=== PATIENT | male | born 1960 | race Hispanic/Latino ===

== ENCOUNTER 2021-06-26 10:22 | Outpatient (CLI) | payer OTHER ==
--- NOTE | 2021-06-26 13:10 | XRay Report ---
LEFT FOOT 2 VIEWS INDICATION / CLINICAL INFORMATION: LT FOOT ARTHRITIS COMPARISON: None available. FINDINGS: BONES / JOINT(S): Chronic flatfoot deformity. Underlying bony sclerosis and degenerative change. Ther e appears to be chronic collapse at the talus and anterior calcaneus which is not well evaluated. Deg enerative changes greatest at the first metatarsophalangeal joint where changes are moderate. Underly ing osteopenia is noted. Findings could be better evaluated with CT or MRI as clinically indicated. SOFT TISSUES: Diffuse soft tissue swelling noted. ADDITIONAL FINDINGS: None. Signer Name: Stephen Saavedra MD Signed: 06/26/2021 1:05 PM Workstation Name: [id number]
== END 2021-06-26 10:23 | disposition home or self-care (01) ==
LOC: XRAY 10:22
PROVIDERS: ATTEND Internal Medicine
DX: M19.072 Primary osteoarthritis, left ankle and foot (principal); M79.89 Other specified soft tissue disorders; M85.872 Other specified disorders of bone density and structure, left ankle and foot